=== PATIENT | female | born 1990 | race Caucasian/White ===

== ENCOUNTER 2019-06-04 17:32 | Emergency (ER) | payer BC ==
[~2019-06-04] VITALS: Ht 170.2 cm; Wt 61.8 kg
[2019-06-04 17:51] VITALS: BP 121/71
[2019-06-04 19:17] LABS: ALBUMIN 4.6 gm/dL (3.5-5.0); BILIRUBIN,TOTAL 0.4 mg/dL (0.0-1.0); CALCIUM 9.4 mg/dL (8.4-10.2); CREATININE, serum 0.54 (0.52-1.25); POTASSIUM 4.1 mmol/L (3.4-5.0); TOTAL PROTEIN 7.9 gm/dL (6.4-8.2)
[2019-06-04 19:18] LABS: BASO % 0.4 % (0.0-2.0); EOS # 0.1 (0.0-0.7); EOS % 0.7 % (0-4.0); GRAN # 4.7 (1.4-6.5); GRAN % 68.2 % (42.2-75.2); HEMOGLOBIN 11.8 g/dl (12.5-16.0); LYMPH # 1.7 (1.2-3.4); LYMPH % 24.4 % (20.0-51.0); MEAN CELL VOLUME 91 fl (80.0-100.0); MEAN CORPUSCULAR HEMOGLOBIN 31 pg (27.0-31.0); MEAN CORPUSCULAR HGB CONC 34 g/dl (33.0-37.0); MEAN PLATELET VOLUME 11.6 fl (7.4-10.4); MONO # 0.4 (0.1-0.6); MONO % 5.9 % (1.7-9.3); PLATELET COUNT 178 K/mm3 (130-400); RED BLOOD COUNT 3.78 M/mm3 (4.10-5.30); REDCELL DISTRIBUTION WIDTH-CV 11.2 % (11.5-14.5)
[2019-06-04 19:22] LABS: HEMATOCRIT 34.3 % (37.0-47.0)
[2019-06-04 23:00] VITALS: TEMP 98.7
[2019-06-04 23:21] VITALS: PULSE 92
== END 2019-06-04 23:21 | disposition home or self-care (01) ==
LOC: COL.ER 17:32
PROVIDERS: Emergency Medicine
DX: R10.31 Right lower quadrant pain (principal); Z98.890 Other specified postprocedural states
CPT/HCPCS: J9260

== ENCOUNTER 2020-08-16 04:33 | Outpatient (CLI) | payer BC ==
[~2020-08-16] VITALS: Ht 167.6 cm; Wt 74.1 kg
--- NOTE | 2020-08-16 04:45 | NUR ---
G3L1 at 40 weeks and 1 day arrives to unit ambulatory with complaint of spontaneous rupture of membranes. Pt reports feeling small leakage of fluid, but has not filled a pad. Pt reports feeling good movement, reports feeling contractions but nothing painful. Pt has history of c/section for breech and would like to TOLAC. Clean gown on, oriented to room, bed in low and locked position, call light within reach. US and toco explained and applied. Admission assessment started. Vital signs obtained. Amnitrace negative SVE 2/80/-3 posterior, membranes felt on exam and no amniotic fluid returned on glove.
[2020-08-16 05:00] VITALS: BP 124/84; PULSE 92; TEMP 98.4
[2020-08-16] MEDS ORDERED: CALCIUM CARBON650 M2 (05:16)
[2020-08-16] MEDS ORDERED: PRENATAL TABLET PO (05:16)
[2020-08-16 05:30] VITALS: BP 115/82; PULSE 96
--- NOTE | 2020-08-16 05:30 | NUR ---
RN at bedside to check on patient, pt states she has felt no additional leaking since arrival.
[2020-08-16 06:10] VITALS: BP 114/69; PULSE 86
--- NOTE | 2020-08-16 06:10 | NUR ---
SVE unchanged from previous exam. No leaking of fluid and peripad beneath patient dry. Pt ok with discharge plan 0630 - Discharge instructions reviewed with patient and spouse, verbalized understanding. Pt seen ambulating off unit with spouse.
[2020-08-17] MEDS ORDERED: PERCOCET 325 MG1 TA2 PO (15:39)
[2020-08-17] MEDS ORDERED: MOTRIN 800800 MG/TAB PO (15:39)
== END 2020-08-16 06:30 | disposition home or self-care (01) ==
LOC: LDRO 04:33
DX: O42.92 Full-term premature rupture of membranes, unspecified as to length of time between rupture and onset of labor (principal); Z3A.40 40 weeks gestation of pregnancy

== ENCOUNTER 2020-08-17 02:08 | Inpatient (IN) | payer BC ==
[2020-08-17] VITALS (51 sets, daily range): BP systolic 12–152; BP diastolic 56–92; PULSE 90–150; TEMP 97.9–99.6
[~2020-08-17] VITALS: Ht 167.6 cm; Wt 74.1 kg
[~2020-08-17 02:08] MED LIST: CALCIUM CARBON650 M2; PRENATAL TABLET PO
[2020-08-17 04:32] LABS: BASO % 0.2 % (0.0-2.0); EOS # 0.1 (0.0-0.7); EOS % 0.6 % (0-4.0); GRAN # 6.8 (1.4-6.5); GRAN % 69.6 % (42.2-75.2); HEMATOCRIT 42.2 % (37.0-47.0); HEMOGLOBIN 14.3 g/dl (12.5-16.0); LYMPH # 2.2 (1.2-3.4); LYMPH % 22.1 % (20.0-51.0); MEAN CELL VOLUME 98 fl (80.0-100.0); MEAN CORPUSCULAR HEMOGLOBIN 33 pg (27.0-31.0); MEAN CORPUSCULAR HGB CONC 34 g/dl (33.0-37.0); MEAN PLATELET VOLUME 12.9 fl (7.4-10.4); MONO # 0.6 (0.1-0.6); MONO % 6.5 % (1.7-9.3); PLATELET COUNT 154 K/mm3 (130-400); RED BLOOD COUNT 4.33 M/mm3 (4.10-5.30); REDCELL DISTRIBUTION WIDTH-CV 12.2 % (11.5-14.5)
[2020-08-17] MEDS ORDERED: PERCOCET 325 MG1 TA2 PO (15:39)
[2020-08-17] MEDS ORDERED: MOTRIN 800800 MG/TAB PO (15:39)
[2020-08-18 03:26] VITALS: BP 112/67; PULSE 93; TEMP 97.8
[2020-08-18 07:33] VITALS: BP 115/65; PULSE 104; TEMP 97.5
[2020-08-18 12:40] VITALS: BP 108/59; PULSE 102; TEMP 98.3
[2020-08-18 15:17] VITALS: BP 96/52; PULSE 103; TEMP 98.1
[2020-08-18 20:30] VITALS: BP 120/73; PULSE 103; TEMP 97.9
[2020-08-19 09:00] VITALS: BP 122/68; PULSE 76; TEMP 98.1
== END 2020-08-19 13:32 | disposition home or self-care (01) | DRG 807 ==
LOC: LDRO 02:08 → LDR 02:58 → OB 19:10
PROVIDERS: ADMIT Obstetrics & Gynecology
PROC: 10D07Z6 Extraction of Products of Conception, Vacuum, Via Natural or Artificial Opening (ICD-10-PCS; principal; 2020-08-17)
PROC: 0KQM0ZZ Repair Perineum Muscle, Open Approach (ICD-10-PCS; 2020-08-17)
DX: O48.0 Post-term pregnancy (principal); Z37.0 Single live birth; Z3A.40 40 weeks gestation of pregnancy; O34.211 Maternal care for low transverse scar from previous cesarean delivery; O70.1 Second degree perineal laceration during delivery; O62.2 Other uterine inertia; O42.92 Full-term premature rupture of membranes, unspecified as to length of time between rupture and onset of labor
CPT/HCPCS: J2210; J2590; J7120